=== PATIENT | female | born 1990 | race Caucasian/White ===

== ENCOUNTER 2020-02-01 22:12 | Emergency (ER) | payer SELFPAY ==
[2020-02-02 01:56] LABS: ABSOLUTE LYMPHOCYTES (AUTO) 1.3 10^3/uL (0.5-4.7); ABSOLUTE MONOCYTES (AUTO) 0.3 10^3/uL (0.1-1.4); ABSOLUTE NEUT (AUTO) 1.2 10^3/uL (1.7-8.2); BASOPHILS % (AUTO) 1.4 % (0-2); EOSINOPHILS % (AUTO) 0.4 % (0-6); HEMATOCRIT 42.6 % (36.0-47.0); HEMOGLOBIN 14.7 g/dL (12.0-15.5); LYMPHOCYTES % (AUTO) 44.3 % (13-45); MEAN CORPUSCULAR HEMOGLOBIN 33.5 pg (27.0-33.4); MEAN CORPUSCULAR HGB CONC 34.5 g/dL (32.0-36.0); MEAN CORPUSCULAR VOLUME 97 fl (80-97); MONOCYTES % (AUTO) 10.7 % (3-13); PLATELET COUNT 136 10^3/uL (150-450); RED CELL DISTRIBUTION WIDTH 15.8 % (11.5-14.0); SEGMENTED NEUTROPHILS % (AUTO) 43.2 % (42-78); TOTAL CELLS COUNTED % (AUTO) 100 %; WHITE BLOOD COUNT 2.8 10^3/uL (4.0-10.5)
[2020-02-02 02:04] LABS: APPEARANCE,URINE SLIGHTLY-CLOUDY; BILIRUBIN,URINE NEGATIVE (NEGATIVE); COLOR,URINE AMBER; GLUCOSE, URINE NEGATIVE (NEGATIVE); KETONES,URINE 20 mg/dL (NEGATIVE); LEUKOCYTE ESTERASE,URINE NEGATIVE (NEGATIVE); NITRITE,URINE NEGATIVE (NEGATIVE); PROTEIN,URINE 100 mg/dL (NEGATIVE); URINE SPECIFIC GRAVITY 1.025
[2020-02-02 02:12] LABS: ALBUMIN 5.2 g/dL (3.5-5.0); ALKALINE PHOSPHATASE 123 U/L (38-126); ANION GAP 15 (5-19); BILIRUBIN,DIRECT 0.3 mg/dL (0.0-0.4); BILIRUBIN,TOTAL 0.8 mg/dL (0.2-1.3); BLOOD UREA NITROGEN 3 mg/dL (7-20); CALCIUM 9.3 mg/dL (8.4-10.2); CARBON DIOXIDE 23 mmol/L (22-30); CHLORIDE 106 mmol/L (98-107); GLUCOSE 91 mg/dL (75-110); POTASSIUM 4.4 mmol/L (3.6-5.0); TOTAL PROTEIN 8.7 g/dL (6.3-8.2)
[2020-02-02 02:23] LABS: ACETAMINOPHEN < 10 ug/mL (10-30); ASPARTATE AMINO TRANSFERASE 957 U/L (14-36); SALICYLATE < 1.0 mg/dL (2.0-20.0)
[2020-02-02 02:26] LABS: ALCOHOL 379 mg/dL (NONE DETECTED)
[2020-02-02 02:39] LABS: URINE BARBITURATES SCREEN NEGATIVE; URINE BENZODIAZEPINES SCREEN NEGATIVE; URINE COCAINE SCREEN NEGATIVE; URINE MARIJUANA (THC) SCREEN NEGATIVE; URINE METHADONE SCREEN NEGATIVE; URINE PHENCYCLIDINE SCREEN NEGATIVE
[2020-02-02 02:47] LABS: URINE AMPHETAMINES SCREEN UNCONFIRMED POSITIVE
--- NOTE | 2020-02-02 04:08 | ER Document Report ---
HPI - HPI Time Seen by Provider: 02/02/20 04:08 Pain Level: Denies - REPRODUCTIVE LMP: 01/28/20 Reproductive: DENIES: : Past Medical History - Social History Smoking Status: Never Smoker Frequency of alcohol use: 2 bottles of wine a day Patient has homicidal ideation: No Course - Vital Signs Vital signs: Temp Pulse Resp BP Pulse Ox 98.5 F 137 H 16 151/120 H 95 02/02/20 01:03 02/01/20 22:19 02/01/20 22:19 02/01/20 22:19 02/01/20 22:19 - Laboratory Result Diagrams: 02/02/20 01:41 02/02/20 01:41 Laboratory results interpreted by me: 02/02/20 02/02/20 02/02/20 01:41 01:41 01:41 WBC 2.8 L MCH 33.5 H RDW 15.8 H Plt Count 136 L Absolute Neuts (auto) 1.2 L BUN 3 L Creatinine 0.48 L AST 957 H ALT 318 H Total Protein 8.7 H Albumin 5.2 H Urine Protein 100 H Urine Ketones 20 H Urine Blood MODERATE H Urine Urobilinogen 4.0 H Salicylates < 1.0 L Acetaminophen < 10 L Serum Alcohol 379 H*
[2020-02-02] MEDS ORDERED: NORMAL SALINE 1000 ML 1,000 ML IV ONE (04:11)
[2020-02-02 04:35] VITALS: BP 137/91
--- NOTE | 2020-02-02 05:59 | ER Document Report ---
ED Medical Screen (RME) - General Chief Complaint: Alcohol Withdrawl Stated Complaint: ALCOHOL CONSUMPTION Time Seen by Provider: 02/02/20 04:08 Mode of Arrival: Ambulatory Information source: Patient Notes: Charge nurse requested that I go out front to evaluate this patient due to complaints made by patient and family member of excessive weight time. Patient is a 29-year-old female presenting to the emergency department chief complaint of acute intoxication. Patient reports she drank 1 bottle of wine today. Patient reports she usually drinks 2 bottles of wine. Patient was supposed to be going to [facility] for voluntary rehab. She states when she went to [facility] they told her to come here for medical screening. Patient denies any acute complaints today. She states she is ready to get help. Her father is in the triage room with her at my initial evaluation. Patient is alert, oriented, no acute distress noted. Plan at this time is to redraw patient's EtOH level. She will also receive some IV fluids here in the triage area. Will reevaluate. - Related Data Allergies/Adverse Reactions: No Known Allergies Allergy (Verified 02/02/20 01:10) Past Medical History - Social History Frequency of alcohol use: 2 bottles of wine a day Physical Exam - Vital signs Vitals: Temp Pulse Resp BP Pulse Ox 98.5 F 137 H 16 151/120 H 95 02/01/20 22:19 02/01/20 22:19 02/01/20 22:19 02/01/20 22:19 02/01/20 22:19 Course - Vital Signs Vital signs: Temp Pulse Resp BP Pulse Ox 98.7 F 107 H 18 137/91 H 95 02/02/20 04:15 02/02/20 04:15 02/02/20 04:15 02/02/20 04:15 02/02/20 04:15 - Laboratory Result Diagrams: 02/02/20 01:41 02/02/20 01:41 Laboratory results interpreted by me: 02/02/20 02/02/20 02/02/20 01:41 01:41 01:41 WBC 2.8 L MCH 33.5 H RDW 15.8 H Plt Count 136 L Absolute Neuts (auto) 1.2 L BUN 3 L Creatinine 0.48 L AST 957 H ALT 318 H Total Protein 8.7 H Albumin 5.2 H Urine Protein 100 H Urine Ketones 20 H Urine Blood MODERATE H Urine Urobilinogen 4.0 H Salicylates < 1.0 L Acetaminophen < 10 L Serum Alcohol 379 H*
--- NOTE | 2020-02-02 07:10 | EKG REPORT ---
SEVERITY:- ABNORMAL ECG - SINUS TACHYCARDIA NONSPECIFIC T ABNORMALITIES, INFERIOR LEADS : Confirmed by: Laz Tristan MD 02-Feb-2020 07:10:06
== END 2020-02-02 05:38 | disposition left against medical advice (07) ==
LOC: ER 22:12
DX: Z53.29 Procedure and treatment not carried out because of patient's decision for other reasons (principal); F10.239 Alcohol dependence with withdrawal, unspecified
CPT/HCPCS: 93005; 99281; 96360; 36415; 80307 ×4; 84703; 85025; 80053; 81001; 93010; J7030